=== PATIENT | female | born 1945 ===

== ENCOUNTER 2016-07-17 09:37 | Observation (INO) | payer BC ==
[2016-07-17 09:41] VITALS: BMI 27.4
--- NOTE | 2016-07-17 10:45 | C.PDOC ---
History Of Present Illness 70 y/o female pmhx diabetes, HTN, High cholesterol, presents to the ED with complains of intermittent chest pain at center of chest. Pain is described as pressure with heavy sensation, usually at night but not every night. Pt saw PMD yesterday and told patient to go to ED for cardiac admission. Pt woke up this morning with generalized weakness. Pt states chest pain is associated with mild SOB. She has SOB on exertion without chest pain on occasion. Pt currently without chest pain. Her last stress test and ECHO were normal, +5 years ago. Pt denies fever, cough, dizziness, syncope, diaphoresis, palpitations, abdominal pain, nausea, vomiting or any other complaints. PMD Edward Gaspar. Time Seen by Provider: 07/17/16 09:55 Chief Complaint (Nursing): Chest Pain Past Medical History Vital Signs: Last Vital Signs Temp 97.5 F L 07/17/16 09:44 Pulse 77 07/17/16 09:44 Resp 18 07/17/16 09:44 BP 163/85 H 07/17/16 09:44 Pulse Ox 95 07/17/16 09:44 ED Course And Treatment O2 Sat by Pulse Oximetry: 95
--- NOTE | 2016-07-17 10:50 | C.PDOC ---
History Of Present Illness 70 y/o female pmhx diabetes, HTN, High cholesterol, presents to the ED with complains of intermittent chest pain at center of chest x2 weeks. Pain is described as pressure with heavy sensation, usually at night but not every night. Pt saw PMD yesterday and told patient to go to ED for cardiac admission. Pt woke up this morning with generalized weakness. Pt states chest pain is associated with mild SOB. She also reports occasional SOB on exertion without chest pain. Pt is currently without chest pain. Her last stress test and ECHO were normal, +5 years ago. Pt denies fever, cough, dizziness, syncope, diaphoresis, palpitations, abdominal pain, nausea, vomiting or any other complaints. PMD Edward Chasity. Of note, patient took a dose of her daily baby asa [employer]. Time Seen by Provider: 07/17/16 09:55 Chief Complaint (Nursing): Chest Pain History Per: Patient History/Exam Limitations: no limitations Onset/Duration Of Symptoms: Days, Intermittent Episodes Current Symptoms Are (Timing): Gone Severity: Mild Quality: Pressure Recent travel outside of the [place]: No Past Medical History Reviewed: Historical Data, Nursing Documentation, Vital Signs Vital Signs: Last Vital Signs Temp 97.5 F L 07/17/16 09:44 Pulse 69 07/17/16 10:47 Resp 19 07/17/16 10:47 BP 138/80 07/17/16 10:47 Pulse Ox 95 07/17/16 11:39 Family History: States: Unknown Family Hx Review Of Systems Except As Marked, All Systems Reviewed And Found Negative. Constitutional: Negative for: Fever, Sweats Cardiovascular: Positive for: Chest Pain (currently resolved). Negative for: Palpitations Respiratory: Positive for: Shortness of Breath (intermittent). Negative for: Cough Gastrointestinal: Negative for: Nausea, Vomiting, Abdominal Pain Neurological: Negative for: Dizziness Physical Exam - Physical Exam Appears: Non-toxic, No Acute Distress Skin: Warm, Dry, No Rash Head: Atraumatic, Normacephalic Neck: Normal ROM, Supple Chest: Symmetrical, No Tenderness Cardiovascular: Rhythm Regular, No Murmur Respiratory: Normal Breath Sounds, No Rales, No Rhonchi, No Wheezing Gastrointestinal/Abdominal: Soft, No Tenderness Extremity: Normal ROM, No Pedal Edema Extremity: Bilateral: Atraumatic Neurological/Psych: Oriented x3, Normal Speech, Normal Cognition ED Course And Treatment - Laboratory Results Result Diagrams: 07/17/16 11:43 07/17/16 11:43 Lab Interpretation: Normal (trop negative, bnp normal) ECG: Interpreted By Me ECG Rhythm: Sinus Rhythm (NSR at 75 bpm, no acute ST changes) O2 Sat by Pulse Oximetry: 95 (on room air) Pulse Ox Interpretation: Normal - Radiology CXR: Read By Radiologist CXR Interpretation: Yes: Other (Diffuse chronic increased interstitial lung markings. Mild patchy bibasilar airspace opacities. More confluent opacity at the left lung base may represent prominent epicardial fat pad versus small focal patchy atelectasis and or infiltrate. Question trace left pleural effusion. This may be better evaluated with lateral view. Small nodular density at the right lung base.) Medical Decision Making Medical Decision Making: Plan: -- Labs -- EKG -- CXR -- Reassess and disposition On re-evaluation, patient states that she feels well at this time. Denies any chest pain, SOB or abdominal pain. Exam is unchanged, patient is sitting up in bed comfortably in no acute distress. Labs reviewed, CBC / CMP wnl, trop (-), BNP (-). EKG NSR / CXR NAD. Case d/w Dr. Steven Gaspar, agrees with plan for inpatient obs tele w/ consult to Dr. William. Bridge orders placed. 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 - Scribe Statement The provider has reviewed the documentation as recorded by the Juanitaibraul Sparks All medical record entries made by the Scribe were at my direction and personally dictated by me. I have reviewed the chart and agree that the record accurately reflects my personal performance of the history, physical exam, medical decision making, and the department course for this patient. I have also personally directed, reviewed, and agree with the discharge instructions and disposition.
[2016-07-17] MEDS ORDERED: Aspirin 325 mg EC Tablets PO STA (11:26)
--- NOTE | 2016-07-17 11:47 | RAD ---
PROCEDURE: CHEST RADIOGRAPH, 1 VIEW HISTORY: chest pain COMPARISON: None available. FINDINGS: LUNGS: Diffuse chronic increased interstitial lung markings. Mild patchy bibasilar airspace opacities. More confluent opacity at the left lung base may represent prominent epicardial fat pad versus small focal patchy atelectasis and or infiltrate. Question trace left pleural effusion. This may be better evaluated with lateral view. Small nodular density at the right lung base. PLEURA: As above. CARDIOVASCULAR: Calcification at the aortic knob. OSSEOUS STRUCTURES: No significant abnormalities. VISUALIZED UPPER ABDOMEN: Normal. OTHER FINDINGS: None. IMPRESSION: Diffuse chronic increased interstitial lung markings. Mild patchy bibasilar airspace opacities. More confluent opacity at the left lung base may represent prominent epicardial fat pad versus small focal patchy atelectasis and or infiltrate. Question trace left pleural effusion. This may be better evaluated with lateral view. Small nodular density at the right lung base.
[2016-07-17 11:49] LABS: BASO # 0.1 K/uL (0.0-0.2); BASO % 0.8 % (0.0-2.0); EOS # 0.2 K/uL (0.0-0.7); EOS % 2.1 % (0.0-4.0); HEMATOCRIT 44.9 % (34.0-47.0); LYMPH # 2.4 K/uL (1.0-4.3); LYMPH % 27.1 % (20.0-40.0); MEAN CELL VOLUME 92.1 fL (81.0-99.0); MEAN CORPUSCULAR HEMOGLOBIN 30.1 pg (27.0-31.0); MEAN CORPUSCULAR HGB CONC 32.7 g/dL (33.0-37.0); MEAN PLATELET VOLUME 9.1 fL (7.2-11.7); MONO # 0.6 K/uL (0.0-0.8); MONO % 7.1 % (0.0-10.0); RED CELL DISTRIBUTION WIDTH 13.2 % (11.5-14.5)
[2016-07-17 11:58] LABS: CHLORIDE 100 mmol/L (98-107); POTASSIUM 3.9 mmol/L (3.6-5.2); SODIUM 142 mmol/L (132-148)
[2016-07-17 12:00] LABS: GFR AFRICAN-AMERICAN > 60
[2016-07-17 12:01] LABS: ALB/GLOB RATIO 1.1 (1.0-2.1); ALKALINE PHOSPHATASE 76 U/L (38-126); ALT/SGPT 35 U/L (9-52); AST/SGOT 34 U/L (14-36); BILIRUBIN,TOTAL 0.5 mg/dL (0.2-1.3); BLOOD UREA NITROGEN 12 mg/dL (7-17); CARBON DIOXIDE 27 mmol/L (22-30); GLUCOSE,RANDOM 122 mg/dL (65-105); TOTAL PROTEIN 8.3 g/dL (6.3-8.3)
[2016-07-17 12:02] LABS: CALCIUM 9.1 mg/dl (8.6-10.4)
--- NOTE | 2016-07-17 21:25 | CP.PCM.CON ---
History of Present Illness - History of Present Illness History of Present Illness: I was asked to see patient by Dr. Gaspar. Patient is a 70 year old female with a history of HTN, DM who presents with chest pain. The patient describes intermittent chest pressure which is central in location and associate with dyspnea. She states symptoms began one week ago, and have progressed. The patient has developed symptoms which occur at night. Review of Systems - Constitutional Constitutional: absent: As Per HPI, Anorexia, Chills, Daytime Sleepiness, Excessive Sweating, Fatigue, Fever, Frequent Falls, Headache, Increased Appetite , Lethargy, Malaise, Night Sweats, Snoring, Sleep Apnea, Weight Gain, Weight Loss, Weakness, Other - EENT Eyes: absent: As Per HPI, Blind Spots, Blurred Vision, Change in Vision, Decreased Night Vision, Diplopia, Discharge, Dry Eye, Exophthalmos, Floaters, Irritation, Itchy Eyes, Loss of Peripheral Vision, Pain, Photophobia, Requires Corrective Lenses, Sees Flashes, Spots in Vision, Tunnel Vision, Other Visual Disturbances, Loss of Vision, Other Ears: absent: As Per HPI, Decreased Hearing, Ear Discharge, Ear Pain, Tinnitus, Abnormal Hearing, Disequilibrium, Dizziness, Other Nose/Mouth/Throat: absent: As Per HPI, Epistaxis, Nasal Congestion, Nasal Discharge, Nasal Obstruction, Nasal Trauma, Nose Pain, Post Nasal Drip, Sinus Pain, Sinus Pressure, Bleeding Gums, Change in Voice, Dental Pain, Dry Mouth, Dysphagia, Halitosis, Hoarsness, Lip Swelling, Mouth Lesions, Mouth Pain, Odynophagia, Sore Throat, Throat Swelling, Tongue Swelling, Facial Pain, Neck Pain, Neck Mass, Other - Breasts Breasts: absent: As Per HPI, Change in Shape, Mass, Pain, Nipple Discharge, Nipple Inversion, Skin Changes, Swelling, Other - Cardiovascular Cardiovascular: Chest Pain, Dyspnea - Respiratory Respiratory: absent: As Per HPI, Cough, Dyspnea, Hemoptysis, Dyspnea on Exertion , Wheezing, Snoring, Stridor, Pain on Inspiration, Chest Congestion, Excessive Mucous Production, Change in Mucous Color, Pain with Coughing, Other - Gastrointestinal Gastrointestinal: absent: As Per HPI, Abdominal Pain, Belching, Bloating, Change in Bowel Habits, Change in Stool Character, Coffee Ground Emesis, Constipation, Cramping, Diarrhea, Dyspepsia, Dysphagia, Early Satiety, Excessive Flatus, Fecal Incontinence, Heartburn, Hematemesis, Hematochezia, Loose Stools, Melena, Nausea, Odynophagia, Temesmus, Vomiting, Other - Genitourinary Genitourinary: absent: As Per HPI, Change in Urinary Stream, Difficulty Urinating, Dysuria, Flank Pain, Hematuria, Pyuria, Nocturia, Urinary Incontinence, Urinary Frequency, Urinary Hesitance, Urinary Urgency, Voiding Freq/Small Amts, Freq UTI, Hx Renal/Bladder Calculi, Hx /Renal Surgery, Bladder Distension, Other - Musculoskeletal Musculoskeletal: absent: As Per HPI, Abnormal Gait, Arthralgias, Atrophy, Back Pain, Deformity, Joint Swelling, Limited Range of Motion, Loss of Height, Muscle Cramps, Muscle Weakness, Myalgias, Neck Pain, Numbness, Radiating Pain into Limb, Stiffness, Tingling, Other - Integumentary Integumentary: absent: As Per HPI, Acne, Alopecia, Bleeding Lesions, Change in Hair, Change in Nails, Change in Pigmentation, Changing Lesions, Dry Skin, Erythema, Furuncle, Hirsutism, Lesions, New Lesions, Non-Healing Lesions, Photosensitivity, Pruritus, Rash, Skin Pain, Skin Ulcer, Sores, Striae, Swelling , Unusual Bruising, Wounds, Jaundice, Other - Neurological Neurological: absent: As Per HPI, Abnormal Gait, Abnormal Hearing, Abnormal Movements, Abnormal Speech, Behavioral Changes, Burning Sensations, Confusion, Convulsions, Disequilibrium, Dizziness, Numbness, Focal Weakness, Frequent Falls , Headaches, Lack of Coordination, Loss of Vision, Memory Loss, Paresthesias, Radicular Pain, Restless Legs, Sensory Deficit, Syncope, Tingling, Tremor, Vertigo, Weakness, Other Visual Disturbances, Other - Psychiatric Psychiatric: absent: As Per HPI, Abnormal Sleep Pattern, Anhedonia, Anxiety, Auditory Hallucinations, Behavioral Changes, Change in Appetite, Change in Libido, Confusion, Depression, Difficulty Concentrating, Hallucinations, Homicidal Ideation, Hopelessness, Irritability, Memory Loss, Mood Swings, Panic Attacks, Paranoia, Suicidal Ideation, Visual Hallucinations, Tactile Hallucinations, Other - Endocrine Endocrine: absent: As Per HPI, Change in Body Appearance, Change in Libido, Cold Intolorance, Deepening of Voice, Excessive Sweating, Fatigue, Flushing, Heat Intolorance, Increase in Ring/Shoe/Hat Size, Palpitations, Polydipsia, Polyphagia, Polyuria, Other - Hematologic/Lymphatic Hematologic: absent: As Per HPI, Easy Bleeding, Easy Bruising, Lymphadenopathy, Other Past Patient History - Past Social History Smoking Status: Former Smoker - CARDIAC Hx Cardiac Disorders: Yes Hx Hypercholesterolemia: Yes Hx Hypertension: Yes - ENDOCRINE/METABOLIC Hx Endocrine Disorders: Yes Hx Diabetes Mellitus Type 2: Yes - PSYCHIATRIC Hx Substance Use: No Meds Allergies/Adverse Reactions: Allergies Allergy/AdvReac Type Severity Reaction Status Date / Time No Known Allergies Allergy Verified 07/17/16 11:04 - Medications Medications: Current Medications Aspirin (Ecotrin) 81 mg PO DAILY [facility] Clopidogrel Bisulfate (Plavix) 75 mg PO DAILY [facility] Enoxaparin Sodium (Lovenox) 60 mg SC Q12 [facility] Hydrochlorothiazide (Microzide) 12.5 mg PO DAILY [facility] Losartan Potassium (Cozaar) 100 mg PO DAILY [facility] Metoprolol Tartrate (Lopressor) 50 mg PO Q12H [facility] Rosuvastatin Calcium (Crestor) 10 mg PO HS [facility] Fluticasone/Salmeterol (Advair Diskus 250/50) 1 puff INH RQ12 [facility] Physical Exam - Constitutional Appears: Non-toxic - Head Exam Head Exam: NORMAL INSPECTION - Eye Exam Eye Exam: Normal appearance - ENT Exam ENT Exam: Mucous Membranes Moist - Neck Exam Neck exam: Positive for: Full Rom - Respiratory Exam Respiratory Exam: Decreased Breath Sounds - Cardiovascular Exam Cardiovascular Exam: REGULAR RHYTHM - GI/Abdominal Exam GI & Abdominal Exam: Normal Bowel Sounds - Rectal Exam Rectal Exam: Deferred - Extremities Exam Extremities exam: Positive for: pedal edema - Back Exam Back exam: NORMAL INSPECTION Results - Vital Signs Recent Vital Signs: Last Vital Signs Temp 98.4 F 07/17/16 15:38 Pulse 64 07/17/16 15:38 Resp 18 07/17/16 15:38 BP 116/68 07/17/16 15:38 Pulse Ox 95 07/17/16 15:38 - Labs Result Diagrams: 07/17/16 11:43 07/17/16 11:43 Labs: Laboratory Results - last 24 hr 07/17/16 07/17/16 17:05 19:46 POC Glucose (mg/dL) 143 H Troponin I < 0.0120 - EKG Data EKG Interpreted by: Myself EKG shows normal: Sinus rhythm Assessment & Plan (1) Chest pain Assessment and Plan: patient has symptoms and cardiac risk factors suggestive of ischemia. I will schedule stress test for the am. Status: Acute (2) HTN (hypertension) Assessment and Plan: blood pressure control Status: Acute (3) Non-insulin dependent type 2 diabetes mellitus Assessment and Plan: risk factors for CAD. Status: Acute (4) Hypercholesterolemia Assessment and Plan: goal LDL < 100 Status: Acute
[2016-07-17] MEDS: Enoxaparin 60 mg Syringe SC SCH (21:33)
[2016-07-18 01:07] VITALS: RESP 20
--- NOTE | 2016-07-18 07:59 | CP.PCM.PN ---
Subjective - Date & Time of Evaluation Date of Evaluation: 07/18/16 Time of Evaluation: 07:45 - Subjective Subjective: nuclear stress test performed. no complaints. discharge pending results of stress test Objective - Vital Signs/Intake and Output Vital Signs (last 24 hours): Temp Pulse Resp BP Pulse Ox 98.1 F 57 L 20 130/69 96 07/17/16 23:05 07/18/16 05:46 07/17/16 23:05 07/18/16 05:46 07/17/16 23:05 Intake and Output: 07/18/16 07/18/16 06:59 18:59 Intake Total 240 Balance 240 - Medications Medications: Current Medications Aspirin (Ecotrin) 81 mg PO DAILY [facility] Clopidogrel Bisulfate (Plavix) 75 mg PO DAILY [facility] Enoxaparin Sodium (Lovenox) 60 mg SC Q12 [facility] Last Admin: 07/17/16 21:33 Dose: 60 mg Hydrochlorothiazide (Microzide) 12.5 mg PO DAILY [facility] Losartan Potassium (Cozaar) 100 mg PO DAILY [facility] Metoprolol Tartrate (Lopressor) 50 mg PO Q12H [facility] Last Admin: 07/17/16 21:32 Dose: 50 mg Pneumococcal Polyvalent Vaccine (Pneumovax 23 Vaccine) 0.5 ml IM .ONCE ONE Stop: 07/18/16 10:01 Rosuvastatin Calcium (Crestor) 10 mg PO HS [facility] Last Admin: 07/17/16 21:28 Dose: 10 mg Fluticasone/Salmeterol (Advair Diskus 250/50) 1 puff INH RQ12 [facility] - Labs Labs: PT 10.9 SECONDS (9.7-12.2) 07/17/16 11:43 INR 1.0 07/17/16 11:43 APTT 34 SECONDS (21-34) 07/17/16 11:43 Assessment and Plan (1) Chest pain Status: Acute (2) HTN (hypertension) Status: Acute (3) Non-insulin dependent type 2 diabetes mellitus Status: Acute (4) Hypercholesterolemia Status: Acute
--- NOTE | 2016-07-18 08:10 | CP.PCM.HP ---
History of Present Illness - History of Present Illness History of Present Illness: CC: Chest heaviness 70 y/o female with NIDDM, HTN, Asthma & PAD. Patient has chest heaviness x 6 days. Chest heaviness occurs mostly at night and make her SOB. She was seen 07/16 and advise ER. Chest heaviness yesterday was accompanied by fatigue, mild nausea. She was brought to ER c/o son. Present on Admission - Present on Admission Any Indicators Present on Admission: Yes History of DVT/PE: No History of Uncontrolled Diabetes: No Urinary Catheter: No Decubitus Ulcer Present: No Review of Systems - Constitutional Constitutional: Anorexia. absent: Headache, Night Sweats, Sleep Apnea - EENT Eyes: absent: Blurred Vision, Loss of Peripheral Vision, Requires Corrective Lenses Ears: absent: Decreased Hearing, Ear Discharge, Dizziness Nose/Mouth/Throat: absent: Nasal Discharge, Change in Voice, Dry Mouth - Cardiovascular Cardiovascular: Chest Pain, Chest Pain at Rest, Dyspnea on Exertion. absent: Claudication, Diaphoresis, Edema, Irregular Heart Rhythm, Leg Edema, Orthopnea - Respiratory Respiratory: Cough. absent: Hemoptysis, Dyspnea on Exertion, Chest Congestion - Gastrointestinal Gastrointestinal: Nausea. absent: Abdominal Pain, Change in Stool Character, Coffee Ground Emesis, Dysphagia, Loose Stools, Vomiting - Genitourinary Genitourinary: Urinary Frequency. absent: Difficulty Urinating, Dysuria, Pyuria , Urinary Urgency - Musculoskeletal Musculoskeletal: Numbness. absent: Abnormal Gait, Atrophy, Back Pain, Joint Swelling, Myalgias, Stiffness - Integumentary Integumentary: Dry Skin. absent: Change in Hair, Skin Ulcer, Sores, Wounds, Jaundice Past Patient History - Past Medical History & Family History Past Medical History?: Yes - Past Social History Smoking Status: Former Smoker - CARDIAC Hx Cardiac Disorders: Yes Hx Hypercholesterolemia: Yes Hx Hypertension: Yes - PULMONARY Hx Respiratory Disorders: No - NEUROLOGICAL Hx Neurological Disorder: No - HEENT Hx HEENT Problems: No - RENAL Hx Chronic Kidney Disease: No - ENDOCRINE/METABOLIC Hx Endocrine Disorders: Yes Hx Diabetes Mellitus Type 2: Yes - HEMATOLOGICAL/ONCOLOGICAL Hx Blood Disorders: No - INTEGUMENTARY Hx Dermatological Problems: No - MUSCULOSKELETAL/RHEUMATOLOGICAL Hx Falls: No - GASTROINTESTINAL Hx Gastrointestinal Disorders: No - GENITOURINARY/GYNECOLOGICAL Hx Genitourinary Disorders: No - PSYCHIATRIC Hx Substance Use: No - SURGICAL HISTORY Hx Surgeries: No - ANESTHESIA Hx Anesthesia: No Hx Anesthesia Reactions: No Meds Allergies/Adverse Reactions: Allergies Allergy/AdvReac Type Severity Reaction Status Date / Time No Known Allergies Allergy Verified 07/17/16 11:04 Physical Exam - Constitutional Appears: No Acute Distress - Eye Exam Eye Exam: Normal appearance - ENT Exam ENT Exam: Mucous Membranes Moist - Neck Exam Neck exam: Positive for: Full Rom. Negative for: Lymphadenopathy, Tenderness - Respiratory Exam Respiratory Exam: Clear to Auscultation Bilateral. absent: Rales, Rhonchi, Wheezes - Cardiovascular Exam Cardiovascular Exam: REGULAR RHYTHM, +S1, +S2. absent: Gallop, JVD, Systolic Murmur - GI/Abdominal Exam GI & Abdominal Exam: Soft. absent: Mass, Rigid, Tenderness - Extremities Exam Extremities exam: Positive for: full ROM, normal capillary refill. Negative for : calf tenderness, joint swelling, pedal edema Results - Vital Signs Recent Vital Signs: Last Vital Signs Temp 98.1 F 07/17/16 23:05 Pulse 57 L 07/18/16 05:46 Resp 20 07/17/16 23:05 BP 130/69 07/18/16 05:46 Pulse Ox 96 07/17/16 23:05 - Labs Result Diagrams: 07/17/16 11:43 07/17/16 11:43 Labs: Laboratory Results - last 24 hr 07/17/16 07/17/16 07/17/16 17:05 19:46 21:23 POC Glucose (mg/dL) 143 H 107 Total Creatine Kinase CK-MB (Mass) Troponin I < 0.0120 Troponin I, Quant 07/18/16 07/18/16 07/18/16 01:57 06:09 07:01 POC Glucose (mg/dL) 101 Total Creatine Kinase 90 77 CK-MB (Mass) 1.08 0.74 Troponin I Troponin I, Quant < 0.0120 < 0.0120 - EKG Data EKG Interpreted by: Myself EKG shows normal: Sinus rhythm Rate: Normal Assessment & Plan - Assessment and Plan (Free Text) Assessment: Chest pain w/ NIDDM; PAD HTN; Asthma vs COPD Cont meds Discharge if clear c/o Cardio
[2016-07-18] MEDS: Fluticasone-Salmeterol 250-50mcg Diskus INH SCH ×2 (08:31→20:16)
[2016-07-18] MEDS ORDERED: Pneumococcal 23-Valent Vaccine IM ONE (10:00)
[2016-07-18] MEDS: Enoxaparin 60 mg Syringe SC SCH (11:57)
[2016-07-18 17:13] VITALS: BP 116/68; PULSE 59; TEMP 97.9; O2SAT 93
--- NOTE | 2016-07-19 15:13 | CARD ---
APPROVED REPORT EKG Measurement Heart [id number] <Conclusion> Normal sinus rhythm Normal ECG
--- NOTE | 2016-07-24 07:27 | CARD ---
APPROVED REPORT Protocol: PHARMACOLOGICAL Test Type: LEXISCAN Test Indications: CP Target HR: 152 bpm Resting ECG: normal Resting Heart Rate: 64 bpm Resting Blood Pressure: 122/80mmHg submaximum (85%): 129 bpm TEST SUMMARY [id number]:01..1.0./.0. PREINFSNHYPERV.08:[id number]/80.0. INFUSIONDOSE 100:320.00.01.060/.0. [id number]/80.0. POST EXERCISE Reason for Termination: PROTOCOL COMPLETED Target HR: No Max HR: 60 bpm 59% of Maximum Predicted HR: 152 bpm Exercise duration: 00:31 min:sec, 0 Stage Exercise capacity: 1.0METs Max Blood Pressure: 122/80mmHg Blood Pressure response to exercise: normal resting BP - appropriate response Heart Rate response to exercise: appropriate Chest Pain: No, none Angina index: 0 Arrhythmia: No, none ST Change: No, none Deviation: 0 mm INTERPRETATION Stress EKG Conclusion: AWAIT NUCLEAR IMAGES EXAM: Myocardial Perfusion STRESS/REST Imaging Protocol The imaging protocol used to acquire images was Stress Tc-99m/rest Tc-99m 1 day Rest Spect myocardial perfusion imaging was performed in supine position 45 minutes following the injection of 32.3 mCi of Tc-99 Myoview. Gated Stress Spect was performed 45 minutes after intravenous 13.0 mCi Tc-99 Myoview injection. The images were gated to evaluate regional wall motion and calculate ventricular ejection fraction.Images were reconstructed using backfilter projection method in short horizontal and verticle long axis. Spect slices were generated. RESTING DATA EDV39.01blMC8.20L/min ESV5.00mlMyocardial Mass80.00g Av. Heart Rate64.00bpm EF87.00% STRESS DATA EDV53.01clRC1.30L/min ESV4.00mlMyocardial Mass98.00g EF92.00% Regional WT score at stress:0.00 Regional WM score at stress:0.00 Summed WT score at stress:2.00 Av. Heart Rate68.00bpmSummed WM score at stress:0.00 LV Perf. Quant 17 Seg. SSS1.00 17 Seg. SRS0.00 17 Seg. SDS1.00 Stress Defect Extent (% LAD)0.00Rest Defect Extent (% LAD)0.00Rev. Defect Extent (% LAD)0.00 Stress Defect Extent (% LCX)0.00Rest Defect Extent (% LCX)0.00Rev. Defect Extent (% LCX)0.00 Stress Defect Extent (% RCA)0.00Rest Defect Extent (% RCA)0.00Rev. Defect Extent (% RCA)0.00 Stress Defect Extent (% RAMONA)0.00Rest Defect Extent (% RAMONA)0.00Rev. Defect Extent (% RAMONA)0.00 Other Information Quality:Excellent IMPRESSION Normal Myocardial Perfusion exercise stress study Global LV Function: Normal Stress Test Summary: Nondiagnostic LV Perfusion Summary: Normal Left Ventricle LV Size/Shape: The left ventricle is normal size. LV Thickness: There is normal left ventricular wall thickness. LV Function:The left ventricle is normal in structure and function. Regional Wall Motion:No regional wall motion abnormalities noted. Metabolism/Perfusion There are no perfusion/metabolism defects. Conclusion 1. The stress and resting images show normal perfusion.
== END 2016-07-18 15:30 | disposition home or self-care (01) ==
LOC: C.ER 09:37 → C.9E 13:04 → C.6T 13:34
PROVIDERS: ADMIT Internal Medicine; ATTEND Internal Medicine
DX: R07.9 Chest pain, unspecified (principal); I10 Essential (primary) hypertension; E11.9 Type 2 diabetes mellitus without complications; Z79.84 Long term (current) use of oral hypoglycemic drugs; E78.00 Pure hypercholesterolemia, unspecified; J45.909 Unspecified asthma, uncomplicated; I73.9 Peripheral vascular disease, unspecified; Z87.891 Personal history of nicotine dependence; Z23 Encounter for immunization
CPT/HCPCS: 36415; 71010; 80053; 82948; 83036; 83880; 84484; 85025; 85610; 85730; 90732; 93005; 99285; G0009; G0378; J1650